=== PATIENT | male | born 1980 | race Caucasian/White ===

== ENCOUNTER 2016-04-15 14:51 | Emergency (ER) | payer OTHER ==
[2016-04-15 14:55] VITALS: TEMP 97.2
--- NOTE | 2016-04-15 15:41 | EDPHY ---
H & P Stated Complaint: back pain 01/31/16 L4-5&S1 fusion HPI/ROS: CHIEF COMPLAINT: Back pain HISTORY OF PRESENT ILLNESS: The patient is a 35 y/o male, with history of back surgery on 01/31/16, complaining of nerve pain for the last week worse than prior to surgery. He required admission for 8 days following the surgery and recovery progressed well with home health aid for several weeks. A few weeks ago he fell after experiencing sudden loss of sensation in both legs, though worse on the right, and landed directly on his coccyx. He did not have persisting symptoms following the fall. A week ago he developed pain extending from the middle of his incision radiating down through both gluteals, thighs, and into his feet. By Saturday, 4 days ago, the pain became so severe he could not walk. Dr. Burks prescribed him a steroid pack, which improved his pain and mobility over the next 2 days. However by this morning his pain worsened to 7/ 10 at rest. He also has tingling in both feet that is different from the pain he experienced prior to the surgery, but no weakness. He denies incontinence though prior to starting the steroids he felt like he couldn't empty his bladder fully. He is not currently having urinary difficulties. No bowel problems. He is currently on day 4 of steroids and feels his pain is unmanageable at home, though he does not want narcotics here. He denies fever, drainage from incision site. REVIEW OF SYSTEMS: A ten point review of systems was performed and is negative with the exception of the items mentioned in the HPI. Source: Patient - Personal History Tetanus Vaccine Date: 2010 - Medical/Surgical History PMH: PMH includes: 1. Hypertension - lisinopril 2. Back pain - gabapentin 3. 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 Former smoker. Uses chewing tobacco. - Physical Exam Exam: General Appearance: Alert. Vital signs reviewed. BP 154/88 Eyes: Pupils equal and round, no conjunctival injection, no discharge. Anicteric. ENT, Mouth: Mucous membranes are moist, no oropharyngeal erythema or edema. Neck: No lymphadenopathy, supple. Respiratory: Lungs are clear to auscultation; no wheezes, rales, or rhonchi. Cardiovascular: Regular rate and rhythm; no murmur, rub, or gallop. Gastrointestinal: Abdomen is soft and nontender, no masses or organomegaly, bowel sounds normal. Skin: Warm and dry, no rashes on exposed skin, normal color. Incision site on back clean, dry, and intact. Back: Nontender to palpation over the thoracolumbar spine. No CVAT. Extremities: No lower extremity edema, no calf tenderness or swelling. Rectal: Patient refuses. Neurological: Alert and oriented. Moving all four extremities easily and equally. Strength is 5 over 5 bilaterally with testing of all major motor groups in lower extremities. Sensation is intact to light and sharp touch over all 4 extremities, with the exception of slight decrease in bilateral webspaces. Deep tendon reflexes are 2+ knees bilaterally. Psychiatric: Normal affect. Constitutional: Initial Vital Signs Temperature (C) 36.2 C 04/15/16 14:52 Heart Rate 97 04/15/16 14:52 Respiratory Rate 14 04/15/16 14:52 Blood Pressure 154/88 H 04/15/16 14:52 O2 Sat (%) 95 04/15/16 14:52 O2 Delivery Mode Room Air Allergies/Adverse Reactions: No Known Allergies Allergy (Verified 12/28/15 11:40) Home Medications: Medication Instructions Recorded Lisinopril [Zestril 20 mg (*)] 20 mg PO DAILY 12/22/15 Diazepam [Valium 5 MG (*)] 5 - 10 mg PO QID PRN #0 tab 02/07/16 Gabapentin [Neurontin 100 MG (*)] 200 mg PO TID #0 cap 02/07/16 HYDROmorphone HCL [Dilaudid 2 mg 2 mg PO Q4 PRN #0 tab 02/07/16 (*)] Lisinopril [Zestril 20 mg (*)] 20 mg PO DAILY #0 tab 02/07/16 Methocarbamol [Robaxin 750 mg (*)] 750 mg PO Q6 #0 tab 02/07/16 Sennosides/Docusate Sodium 1 - 2 tab PO BID #0 tab 02/07/16 [Senokot-S] morphINE SR [MS Contin/Oramorph SR 30 mg PO TID #0 tab 02/07/16 30 mg (*)] oxyCODONE IR [Oxycodone Ir (*)] 5 - 20 mg PO Q4HRS PRN #0 tab 02/07/16 Medical Decision Making ED Course/Re-evaluation: The patient is a 35 y/o male presenting with 1 week of worsening bilateral back , gluteal, and leg pain following an L4-L5, S1 fusion on 01/31/16, two months ago. He is on his 4th day of steroids for these symptoms as prescribed by his neurosurgeon. Dr. Burks. His neuro exam is unremarkable. Incision site is clean , dry, and intact and without systemic signs of infection. Patient declines narcotic pain medication here. He reports he took several weeks to slowly detox from the narcotics he was prescribed following his surgery. 1605: Consulted with Dr. Manzanares, neurosurgery. She does not recommend imaging and requests patient follow up with them as an outpatient tomorrow. I discussed this with the patient. He will continue with steroids. We discussed the danger signs that should prompt immediate evaluation. Differential Diagnosis: I considered a differential diagnosis of back pain including but not limited to epidural hematoma or abscess, muscular pain, herniated disc, spine fracture, intra-abdominal causes and urinary tract infection. Departure - Departure Disposition: Home, Routine, Self-Care Clinical Impression: Back pain Qualifiers: Back pain location: low back pain Chronicity: chronic Back pain laterality: bilateral Sciatica presence: with sciatica Sciatica laterality: bilateral sciatica Qualifier Code: (M54.42) Lumbago with sciatica, left side Condition: Good Instructions: Back Pain (ED) Additional Instructions: 1. I spoke with your surgeon's office. They request you follow up with their office tomorrow morning. Tell them you were seen in the ED today. 2. Continue with your medications as prescribed. Use 650mg Tylenol every 4-6 hours for the next 4-5 days or as by directed by your neurologist. 3. Return to the ED for leg weakness, incontinence, or other worsening of condition. Referrals: Tima Burks MD [Medical Doctor] - As per Instructions Report Scribed for: Mallika Aguilar Report Scribed by: Madelyn Cardozo Date of Report: 04/15/16 Time of Report: 15:59 Physician Review and Approval Statement: 04/15/16 15:41 Portions of this note were transcribed by the medical and scientific illustrator. I, Dr. Mallika Aguilar, personally performed the history, physical exam, and medical decision- making; and confirmed the accuracy of the information in the transcribed note.
[2016-04-15 17:24] VITALS: BP 144/89; PULSE 95; RESP 18; O2SAT 97
== END 2016-04-15 17:23 | disposition home or self-care (01) ==
DX: M54.42 Lumbago with sciatica, left side (principal); I10 Essential (primary) hypertension; Z87.891 Personal history of nicotine dependence

== ENCOUNTER 2017-11-18 | Emergency (ER) | payer OTHER | END 2017-11-18 08:59 | disposition home or self-care (01) | PROC: 0H9JXZZ Drainage of Left Upper Leg Skin, External Approach (ICD-10-PCS; principal; 2017-11-18) ==